=== PATIENT | male | born 1975 | race Hispanic/Latino ===

== ENCOUNTER 2020-12-07 15:21 | Emergency (ER) | payer SELFPAY ==
[2020-12-07] MEDS ORDERED: SODIUM CHLORIDE 0.9% 1000 ML 1,000 ML IV ONE (15:58)
[2020-12-07 16:04] LABS: Basophils % (Auto) 0.7 % (0.0-1.8); Eosinophils % (Auto) 0.2 % (0.0-4.3); Hematocrit 40.1 % (35.5-45.6); Hemoglobin 13.9 gm/dl (11.8-15.2); Lymphocytes # (Auto) 0.6 K/mm3 (1.2-5.4); Lymphocytes % (Auto) 11.7 % (13.4-35.0); Mean Corpuscular HGB Conc 35 % (32-34); Mean Corpuscular Volume 97 fl (84-94); Monocytes # (Auto) 0.5 K/mm3 (0.0-0.8); Monocytes % (Auto) 10.1 % (0.0-7.3); Red Blood Count 4.15 M/mm3 (3.65-5.03); Red Cell Distribution Width 13.4 % (13.2-15.2)
[2020-12-07 16:10] LABS: Platelet Count 89 K/mm3 (140-440)
[2020-12-07] MEDS ORDERED: LORazepam 2 MG/ML VIAL IV ONE (16:16)
--- NOTE | 2020-12-07 16:18 | Emergency Department Report ---
ED Seizure HPI - General Chief Complaint: Seizure Stated Complaint: SEIZURE Time Seen by Provider: 12/07/20 15:57 Source: patient Mode of arrival: Stretcher Limitations: No Limitations - History of Present Illness Initial Comments: Patient presents with a seizure. He does not have a recollection of all the events. Patient was at work. He stated he did not feel well. He stated that a coworker told him that he did not look well. The coworker then caught him before he actually fell down stairs. 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 He states that he is always shaky. He always has a little bit of a tremor. There is no family history of seizures. He does not have a personal history of seizure. He states that he has felt shaky like this before but never had a seizure. He does admit to regular alcohol consumption. Last drink was several days ago. - Related Data Previous Rx's Medication Instructions Recorded Last Taken Type Clorazepate Dipotassium [Tranxene 15 mg PO TID PRN #16 tablet 12/07/20 Unknown Rx T-Tab] Allergies Allergy/AdvReac Type Severity Reaction Status Date / Time No Known Allergies Allergy Unverified 12/07/20 15:31 ED Review of Systems ROS: Stated complaint: SEIZURE Other details as noted in HPI Comment: All other systems reviewed and negative Constitutional: denies: fever Eyes: denies: vision change ENT: denies: throat pain Respiratory: denies: cough Cardiovascular: denies: chest pain Endocrine: denies: unexplained weight loss Gastrointestinal: denies: abdominal pain Genitourinary: denies: dysuria Musculoskeletal: denies: back pain Skin: denies: rash Neurological: as per HPI Hematological/Lymphatic: denies: easy bruising ED Past Medical Hx - Past Medical History Previous Medical History?: No - Family History Family history: no significant - Social History Substance Use Type: Alcohol - Medications Home Medications: Home Medications Medication Instructions Recorded Confirmed Last Taken Type Clorazepate Dipotassium [Tranxene 15 mg PO TID PRN #16 tablet 12/07/20 Unknown Rx T-Tab] ED Physical Exam - General Limitations: No Limitations, Other (Pulse ox was noted and normal) General appearance: alert, in no apparent distress, other (Generalized tremor) - Head Head exam: Present: atraumatic, normocephalic - Eye Eye exam: Present: normal appearance, EOMI. Absent: scleral icterus - ENT ENT exam: Present: normal exam, mucous membranes moist, normal external ear exam, other (Patient does have intraoral trauma consistent with a bite from a seizure) - Neck Neck exam: Present: normal inspection. Absent: meningismus - Respiratory Respiratory exam: Present: normal lung sounds bilaterally. Absent: respiratory distress - Cardiovascular Cardiovascular Exam: Present: normal rhythm, tachycardia - GI/Abdominal GI/Abdominal exam: Present: soft. Absent: tenderness - Extremities Exam Extremities exam: Present: normal capillary refill - Back Exam Back exam: Absent: CVA tenderness (R), CVA tenderness (L) - Neurological Exam Neurological exam: Present: alert, oriented X3, CN II-XII intact, normal gait, reflexes normal. Absent: motor sensory deficit - Psychiatric Psychiatric exam: Present: normal affect, normal mood - Skin Skin exam: Present: warm, dry ED Course Vital Signs 12/07/20 12/07/20 12/07/20 15:25 15:31 15:56 Temperature 98.2 F Pulse Rate 119 H Respiratory 16 17 Rate Blood Pressure Blood Pressure 131/96 [Right] O2 Sat by Pulse 96 97 93 Oximetry 12/07/20 12/07/20 12/07/20 15:58 16:00 16:16 Temperature 97.9 F Pulse Rate 114 H 117 H 108 H Respiratory 16 17 19 Rate Blood Pressure 118/84 140/100 118/84 Blood Pressure [Right] O2 Sat by Pulse 97 86 96 Oximetry 12/07/20 16:30 Temperature Pulse Rate 109 H Respiratory 16 Rate Blood Pressure 118/84 Blood Pressure [Right] O2 Sat by Pulse 97 Oximetry - Reevaluation(s) Reevaluation #1: 12/07/20 16:18 IV and labs ordered. Reevaluation #2: 12/07/20 17:49 Labs are noted. Patient is feeling better after Ativan. He was discharged. ED Medical Decision Making - Lab Data Result diagrams: 12/07/20 15:52 12/07/20 15:52 With a strip: Sinus tachycardia without ectopy. Monitor observe 10 seconds. - Medical Decision Making Patient presents with a seizure. I believe clinically this is related to alcohol withdrawal. He does have tremor with tachycardia that resolved. He has hypomagnesemia and hypokalemia. These have been addressed. I had a discussion with him. He will go home. He is referred to outpatient medicine. He has been given medications for alcohol withdrawal. He had been advised not to drive. There is no other metabolic derangement that would account for seizure type activity. He does not have any focal neurologic finding currently that would suggest intracranial pathology. He is not having any type of tactile hallucinations. He does not have overt DTs Critical Care Time: No Critical care attestation.: If time is entered above; I have spent that time in minutes in the direct care of this critically ill patient, excluding procedure time. ED Disposition Clinical Impression: Seizure, Hypokalemia, Hypomagnesemia, Tremor Disposition: HOME / SELF CARE / HOMELESS Is pt being admited?: No Condition: Stable Instructions: Hypomagnesemia, Hypokalemia, Managing Non-Epileptic Seizures, Adult Additional Instructions: Drink plenty water. Seek help to stop drinking alcohol. Do not drive until released by your regular doctor. Do not drive on medication. If you cannot see your regular doctor, follow with the referral physician. Return for any problems or concerns. Prescriptions: Clorazepate Dipotassium [Tranxene T-Tab] 15 mg PO TID PRN #16 tablet PRN Reason: tremor Referrals: PRIMARY CARE, [Referring] - 3-5 Days MANUEL BOURNE MD [Staff Physician] - 3-5 Days
[2020-12-07 16:24] LABS: Alanine Aminotransferase 83 units/L (7-56); Albumin 4.5 g/dL (3.9-5); BUN/Creatinine Ratio 11; Blood Urea Nitrogen 9 mg/dL (9-20); Calcium 9.6 mg/dL (8.4-10.2); Hemolysis Index 12
[2020-12-07] MEDS ORDERED: POTASSIUM CHLORIDE ER 20 MEQ TAB PO ONE (17:43)
[2020-12-07] MEDS ORDERED: MAGNESIUM SULFATE 2 GM/50 ML BAG IV ONE (17:43)
[2020-12-07 18:15] VITALS: BP 117/83
== END 2020-12-07 19:30 | disposition home or self-care (01) ==
LOC: ED 15:21
DX: R56.9 Unspecified convulsions (principal); E87.6 Hypokalemia; E83.42 Hypomagnesemia; R25.1 Tremor, unspecified; Z72.89 Other problems related to lifestyle; Z79.899 Other long term (current) drug therapy
CPT/HCPCS: 36415; 80053; 83735; 85025; 96361; 96365; 96375; 99284; J2060; J3475; J7030